=== PATIENT | male | born 1990 | race Two or more races ===

== ENCOUNTER 2024-06-06 14:22 | Emergency (ER) | payer MEDICAID ==
[~2024-06-06] VITALS: Ht 157.5 cm; Wt 73.9 kg
[2024-06-06 14:53] LABS: BASOPHILS # (AUTO) 0.1 K/uL (0.0-0.2); BASOPHILS % (AUTO) 0.6 % (0.0-2.0); EOSINOPHILS # (AUTO) 0.1 K/uL (0.0-0.7); EOSINOPHILS % (AUTO) 0.9 % (0.0-6.0); HEMATOCRIT 44 % (39-51); HEMOGLOBIN 14.6 g/dL (13.5-17.5); LYMPHOCYTES # (AUTO) 1.6 K/uL (0.8-4.8); LYMPHOCYTES % (AUTO) 18.4 % (20.0-44.0); MEAN CORPUSCULAR HEMOGLOBIN 32 PG (26.0-33.0); MEAN CORPUSCULAR HGB CONC 33 g/dl (31.0-36.0); MEAN CORPUSCULAR VOLUME 95 fL (80-96); MONOCYTES # (AUTO) 0.4 K/uL (0.1-1.30); MONOCYTES % (AUTO) 3.9 % (2.0-12.0); NEUTROPHILS # (AUTO) 6.8 K/uL (1.8-8.9); NEUTROPHILS % (AUTO) 76.2 % (43.0-81.0); PLATELET COUNT (AUTO) 376 K/uL (150-450); RED BLOOD CELL COUNT(AUTO) 4.58 MIL/uL (4.5-6.0); RED CELL DISTRIBUTION WIDTH 12.6 % (11.5-15.0); WHITE BLOOD COUNT (AUTO) 8.9 K/uL (4.3-11.0)
[2024-06-06] MEDS ORDERED: FAMOTIDINE/PF INJ 20 MG/2 ML VIAL IV ONE (15:03)
[2024-06-06 15:15] LABS: CALCIUM, SERUM 9.1 mg/dL (8.5-10.1)
[2024-06-06] MEDS: IV NS 0.9% 1,000 ML BAG IV ONE (15:17)
[2024-06-06] MEDS: FAMOTIDINE/PF INJ 20 MG/2 ML VIAL IV ONE (15:19)
[2024-06-06 15:20] LABS: ALBUMIN 4.4 g/dL (3.4-5.0); BILIRUBIN,DIRECT 0.2 mg/dL (0.0-0.2); BILIRUBIN,TOTAL 1.1 mg/dL (0.2-1.0); TOTAL PROTEIN, SERUM 7.6 g/dL (6.4-8.2)
[2024-06-06] MEDS ORDERED: ONDANSETRON HCL/PF 4 MG/2 ML VIAL ONE (15:21)
[2024-06-06] MEDS ORDERED: ACETAMINOPHEN 325 MG TABLET ONE (15:22)
[2024-06-06] MEDS ORDERED: MAG HYDROX/AL HYDROX/SIMETH 30 ML UDC ONE (15:22)
[2024-06-06] MEDS: ONDANSETRON HCL/PF 4 MG/2 ML VIAL IV ONE (15:23)
[2024-06-06 15:27] LABS: APPEARANCE,URINE CLEAR (CLEAR); BILIRUBIN,URINE 1+ (NEGATIVE); BLOOD, URINE TRACE-INTA Ery/uL (NEGATIVE); COLOR,URINE YELLOW (YELLOW); KETONES,URINE 1+ mg/dL (NEGATIVE); LEUKOCYTE ESTERASE ,URINE NEGATIVE (NEGATIVE); NITRITE, URINE NEGATIVE (NEGATIVE); PROTEIN,URINE TRACE mg/dl (NEGATIVE); UGLUCOSE NEGATIVE (NEGATIVE); UROBILINOGEN,URINE 0.2 EU/dL (0.2)
[2024-06-06 15:28] LABS: ADD URINE CULTURE NO; BACTERIA,URINE Rare /HPF (None Seen); MUCUS,URINE Few /LPF (None Seen); RBC,URINE 0-2 /HPF (0-2); SQUAMOUS EPITHELIAL CELL,UR Few /HPF (None Seen); WBC,URINE 0-2 /HPF (0-3)
[2024-06-06] MEDS: MAG HYDROX/AL HYDROX/SIMETH 30 ML UDC PO ONE (15:29)
[2024-06-06] MEDS: ACETAMINOPHEN 325 MG TABLET PO ONE (15:29)
[2024-06-06] MEDS ORDERED: ACET325C7 PO (16:05)
[2024-06-06] MEDS ORDERED: FAMO20TA80 PO (16:05)
[2024-06-06] MEDS ORDERED: MAG355OR18 PO (16:05)
[2024-06-06 16:43] VITALS: BP 116/71; TEMP 98.3; O2SAT 99
== END 2024-06-06 16:43 | disposition home or self-care (01) ==
LOC: ER 14:30
DX: R10.12 Left upper quadrant pain (principal); R11.2 Nausea with vomiting, unspecified; R68.83 Chills (without fever); F17.200 Nicotine dependence, unspecified, uncomplicated
CPT/HCPCS: 99285; 96374; 96361; 96375; 85025; 80048; 83690; 80076; 81001; 36415; J3490; J2405